=== PATIENT | female | born 1960 | race Caucasian/White ===

== ENCOUNTER 2023-03-06 08:21 | Inpatient (IN) | payer OTHER ==
[~2023-03-06] VITALS: Ht 144.8 cm; Wt 77.3 kg
[2023-03-06 09:20] LABS: BASOPHILS PERCENT AUTO 1 % (0-2); EOSINOPHILS ABSOLUTE AUTO 0.11 K/mm3 (0.00-0.68); EOSINOPHILS PERCENT AUTO 1 % (0-6); Hematocrit 41.4 % (33.0-51.0); Hemoglobin 13.5 g/dL (11.5-16.0); IMMATURE GRAN ABSOLUTE AUTO 0.04 K/mm3 (0.00-0.10); IMMATURE GRAN PERCENT AUTO 0 % (0-1); LYMPHOCYTES ABSOLUTE AUTO 1.66 K/mm3 (0.84-5.20); LYMPHOCYTES PERCENT AUTO 12 % (21-46); MONOCYTES ABSOLUTE AUTO 1.71 K/mm3 (0.16-1.47); MONOCYTES PERCENT AUTO 12 % (4-13); Mean Corpuscular HGB Conc 32.6 g/dL (31.5-36.5); Mean Corpuscular Volume 89 fL (80-100); Mean Platelet Volume 8.6 fL (9.1-12.4); NEUTROPHILS ABSOLUTE AUTO 10.86 K/mm3 (1.96-9.15); NEUTROPHILS PERCENT AUTO 75 % (41-73); Platelet Count 319 K/mm3 (150-400); RDW Coefficient Variation 15.3 % (11.7-14.2); RDW Standard Deviation 49.6 fL (35.1-46.3); Red Blood Cell Count 4.65 M/mm3 (3.80-5.20); White Blood Cell Count 14.48 K/mm3 (4.00-11.30)
[2023-03-06 09:43] LABS: Albumin, Blood 2.9 g/dL (3.4-5.0); Albumin/Globulin Ratio 0.7 (0.8-1.8); Bilirubin, Total 1.5 mg/dL (0.1-1.0); Bun/Creatinine Ratio 35.8 (12.0-20.0); Calcium, Blood 8.7 mg/dL (8.5-10.1); Creatinine, Blood 1.09 mg/dL (0.40-1.00); Globulin, Blood 3.9 g/dL (2.2-4.0); Potassium, Blood 3.9 mmol/L (3.5-5.5); Total Protein, Blood 6.8 g/dL (6.4-8.2)
[2023-03-06] MEDS ORDERED: ALBU90OI INH (09:58)
[2023-03-06] MEDS ORDERED: ALBU2.5V5 INH (09:58)
[2023-03-06] MEDS ORDERED: PREG300 PO (09:59)
[2023-03-06] MEDS ORDERED: ATOR20 PO (09:59)
[2023-03-06] MEDS ORDERED: LISI20 PO (09:59)
[2023-03-06] MEDS ORDERED: Robaxin750 MG PO (10:01)
[2023-03-06] MEDS ORDERED: PREG150 PO (10:01)
[2023-03-06] MEDS ORDERED: VERA180ERB PO (10:01)
[2023-03-06] MEDS ORDERED: WIXELA 500-501 EAC1 IH (10:01)
[2023-03-06] MEDS ORDERED: BUPR100 PO (10:02)
[2023-03-06] MEDS ORDERED: FURO20 PO (10:02)
[2023-03-06 11:19] LABS: Base Excess Venous -5.8 mmol/L; Bicarbonate Venous 20.1 mmol/L (24.0-30.0); PCO2 Venous 38.7 mmHg (38-42); pH Blood Venous 7.33 (7.34-7.37)
[2023-03-06 11:35] LABS: Adenovirus F 40/41 Not Detected (NOT DETECT); Astrovirus Not Detected (NOT DETECT); Campylobacter Sp Not Detected (NOT DETECT); Cryptosporidium Not Detected (NOT DETECT); Cyclospora Cayetanensis Not Detected (NOT DETECT); E. Coli O157 Not Detected (NOT DETECT); Entamoeba Histolytica Not Detected (NOT DETECT); Enteroaggregative E. coli-EAEC Not Detected (NOT DETECT); Enteropathogenic E. coli-EPEC Not Detected (NOT DETECT); Enterotoxigenic E. coli-ETEC Not Detected (NOT DETECT); Giardia Lamblia Not Detected (NOT DETECT); Norovirus GI/GII Not Detected (NOT DETECT); Plesiomonas Shigelloides Not Detected (NOT DETECT); Rotavirus A Not Detected (NOT DETECT); Salmonella Sp Not Detected (NOT DETECT); Sapovirus Not Detected (NOT DETECT); Shiga Toxin-prod E. coli-STEC Not Detected (NOT DETECT); Shigella/Enteroin E. coli-EIEC Not Detected (NOT DETECT); Vibrio Cholerae Not Detected (NOT DETECT); Vibrio Sp Not Detected (NOT DETECT); Yersinia Enterocolitica Not Detected (NOT DETECT)
[2023-03-06 14:18] VITALS: BP 95/57
[2023-03-06 15:59] VITALS: BP 101/56
--- NOTE | 2023-03-06 17:46 | NUR ---
SHIFT SUMMARY; ASSUMED CARE FROM ED FOR ADMIT. A/A/OX4, STANDS FROM ER [facility] AND GETS INTO BED INDEPENDANTLY. LR PER EMAR AT 150ML/HR, AMBULATES TO BATHROOM WITH SBA, SCD'S BILATERALLY, REPOSITIONS SELF IN BED NEEDED. NPO AT THIS TIME PER ORDERS, WILL CONTINUE TO MONITOR AND TREAT UNTIL CHANGE OF SHIFT.
[2023-03-06 19:59] VITALS: BP 106/57
[2023-03-07] VITALS: BP 89/62
[2023-03-07 04:58] LABS: BASOPHILS ABSOLUTE AUTO 0.11 K/mm3 (0.00-0.23); BASOPHILS PERCENT AUTO 1 % (0-2); EOSINOPHILS ABSOLUTE AUTO 0.27 K/mm3 (0.00-0.68); EOSINOPHILS PERCENT AUTO 2 % (0-6); Hematocrit 37.1 % (33.0-51.0); Hemoglobin 11.9 g/dL (11.5-16.0); IMMATURE GRAN ABSOLUTE AUTO 0.03 K/mm3 (0.00-0.10); IMMATURE GRAN PERCENT AUTO 0 % (0-1); LYMPHOCYTES ABSOLUTE AUTO 1.94 K/mm3 (0.84-5.20); LYMPHOCYTES PERCENT AUTO 17 % (21-46); MONOCYTES ABSOLUTE AUTO 1.19 K/mm3 (0.16-1.47); MONOCYTES PERCENT AUTO 11 % (4-13); Mean Corpuscular HGB 29.2 pg (26.0-34.0); Mean Corpuscular HGB Conc 32.1 g/dL (31.5-36.5); Mean Corpuscular Volume 91 fL (80-100); Mean Platelet Volume 9.3 fL (9.1-12.4); NEUTROPHILS ABSOLUTE AUTO 7.82 K/mm3 (1.96-9.15); NEUTROPHILS PERCENT AUTO 69 % (41-73); Platelet Count 312 K/mm3 (150-400); RDW Coefficient Variation 15.4 % (11.7-14.2); Red Blood Cell Count 4.08 M/mm3 (3.80-5.20); White Blood Cell Count 11.36 K/mm3 (4.00-11.30)
[2023-03-07 05:20] VITALS: BP 116/53
--- NOTE | 2023-03-07 06:03 | NUR ---
SHIFT SUMMARY PATIENT ALERT AND ORIENTED x4. ABLE TO MAKE NEEDS KNOWN TO STAFF. VITALS STABLE, PATIENT PLACED ON 2L NC D/T DESATING WHILE SLEEPING, SPO2 >90%. AMBULATORY TO THE BATHROOM WITH MINIMAL ASSISTANCE, ADEQUATE OUTPUT. TOLERATING SIPS/CHIPS PER ORDER. MEDICATED PER EMAR FOR PAIN. NO OTHER SIGNIFICANT CHANGES, WILL REPORT TO DAY SHIFT RN. PATIENT EDUCATED ON IGNITION RISK. NO RISK NOTED. PATIENT VERBALIZED UNDERSTANDING. WILL CONTINUE TO MONITOR FOR INCREASED RISK.
[2023-03-07 06:54] LABS: Albumin, Blood 2.6 g/dL (3.4-5.0); Albumin/Globulin Ratio 0.8 (0.8-1.8); Bun/Creatinine Ratio 27.6 (12.0-20.0); Calcium, Blood 8.7 mg/dL (8.5-10.1); Creatinine, Blood 0.62 mg/dL (0.40-1.00); Globulin, Blood 3.4 g/dL (2.2-4.0); Potassium, Blood 3.8 mmol/L (3.5-5.5)
[2023-03-07 07:58] VITALS: BP 109/58
[2023-03-07 15:19] VITALS: BP 120/54
--- NOTE | 2023-03-07 17:37 | NUR ---
SHIFT SUMMARY ASSUMED CARE AT 0700, A/A/OX4. REPOSITIONS SELF IN BED, AMBULATES TO BATHROOM WITH SBA. REPORTS FEELING BETTER TODAY COMPARED TO YESTERDAY, DIET ADVANCED TO CLEAR LIQUIDS, TOLERATING SMALL AMOUNTS WELL. CONTINUED LOOSE STOOL TODAY. STATUS CHANGED TO MEDICAL, VSS, WILL CONTINUE TO MONITOR AND TREAT UNTIL CHANGE OF SHIFT.
[2023-03-07 20:10] VITALS: BP 128/54
[2023-03-07 20:59] VITALS: BP 147/63
[2023-03-08 04:57] LABS: BASOPHILS ABSOLUTE AUTO 0.11 K/mm3 (0.00-0.23); BASOPHILS PERCENT AUTO 1 % (0-2); EOSINOPHILS ABSOLUTE AUTO 0.37 K/mm3 (0.00-0.68); EOSINOPHILS PERCENT AUTO 4 % (0-6); Hematocrit 36.4 % (33.0-51.0); IMMATURE GRAN ABSOLUTE AUTO 0.05 K/mm3 (0.00-0.10); IMMATURE GRAN PERCENT AUTO 1 % (0-1); LYMPHOCYTES ABSOLUTE AUTO 2.37 K/mm3 (0.84-5.20); LYMPHOCYTES PERCENT AUTO 25 % (21-46); MONOCYTES ABSOLUTE AUTO 0.97 K/mm3 (0.16-1.47); MONOCYTES PERCENT AUTO 10 % (4-13); Mean Corpuscular HGB 29.1 pg (26.0-34.0); Mean Corpuscular Volume 88 fL (80-100); NEUTROPHILS ABSOLUTE AUTO 5.48 K/mm3 (1.96-9.15); NEUTROPHILS PERCENT AUTO 59 % (41-73); Platelet Count 299 K/mm3 (150-400); RDW Coefficient Variation 14.7 % (11.7-14.2); RDW Standard Deviation 47.7 fL (35.1-46.3); Red Blood Cell Count 4.12 M/mm3 (3.80-5.20); White Blood Cell Count 9.35 K/mm3 (4.00-11.30)
--- NOTE | 2023-03-08 05:13 | NUR ---
SUMMARY- PT TO MEDICAL FLOOR IN STABLE CONDITION AFTER RECEIVING REPORT FROM PCU NURSE. NO ACUTE EVENTS THIS SHIFT. PT CALM AND COOPERATIVE. X1 ASSIST IN THE ROOM. AAOX4. NO COMPLAINTS. X1 EPISODE OF LOOSE STOOL. PT TOLERATING CLEARS WELL. 2 RN SKIN CHECK PERFORMED AT TRANSFER BY THIS RN AND LIVAN ANGEL. PT HAS NO SKIN ISSUES/WOUNDS. RN ENSURED FIRE SAFETY EVERY HOUR DURING ROUNDS.
[2023-03-08 05:49] LABS: Bun/Creatinine Ratio 13.9 (12.0-20.0); Calcium, Blood 8.9 mg/dL (8.5-10.1); Creatinine, Blood 0.51 mg/dL (0.40-1.00); Potassium, Blood 3.7 mmol/L (3.5-5.5)
[2023-03-08 06:12] VITALS: BP 143/56
[2023-03-08 07:22] VITALS: BP 132/64
[2023-03-08 15:35] LABS: Hemoglobin 11.9 g/dL (11.5-16.0)
[2023-03-08 16:16] VITALS: BP 144/70
--- NOTE | 2023-03-08 16:30 | NUR ---
DAYSHIFT SUMMARY Patient is alert & oriented x4, independent in the room. Several episodes of diarrhea, GI panel negative. New order for bannana flakes started today. Plan is to continue IV & PO antibiotics, and advance diet as tolerated. Currently on clears, pt reports nausea with meals. Patient is alert & oriented x4, Provided education on ignition sources and the risks of injury while using an ignition source around oxygen. Patient verbalizes understanding and denies having any ignition source on her or in her items. Vitals stable, Will continue plan of care.
[2023-03-08 19:22] VITALS: BP 148/80
--- NOTE | 2023-03-09 00:13 | NUR ---
RN NOTE MS TALAVERA C/O SHARP ABDOMINAL PAIN AT THE START OF THE SHIFT HELPED WITH DILAUDID IV. SHE HAS BEEN UP INDEPENDENTLY TO THE BATHROOM. SHE DECLINED BANANA FLAKES THIS EVENING SHE SAID IT CAUSED HER TO FEEL NAUSEAUS EARLIER. SHE SAID SHE WILL TRY IT AGAIN WHEN NEXT DUE. PT EDUCATED RE IGNITION SOURCES AND RISK OF INJURY WHEN OXYGEN IS IN USE. PT DENIES SMOKING AND VERBALISED UNDERSTANDING. ASSESSMENT ON Q1-2HRLY ROUNDS.
[2023-03-09 04:24] VITALS: BP 129/76
--- NOTE | 2023-03-09 04:50 | NUR ---
SHIFT SUMMARY MS TALAVERA HAS NOT HAD ANY DIARRHEA OVERNIGHT. SHE SAID HER NAUSEA AND ABDOMINAL PAIN HAVE IMPROVED, FEELING COMFORTABLE THIS MORNING. BED LOW, CALL LIGHT IN REACH.
[2023-03-09 05:27] LABS: BASOPHILS ABSOLUTE AUTO 0.07 K/mm3 (0.00-0.23); BASOPHILS PERCENT AUTO 1 % (0-2); EOSINOPHILS ABSOLUTE AUTO 0.23 K/mm3 (0.00-0.68); EOSINOPHILS PERCENT AUTO 3 % (0-6); Hematocrit 35.5 % (33.0-51.0); Hemoglobin 11.6 g/dL (11.5-16.0); IMMATURE GRAN ABSOLUTE AUTO 0.04 K/mm3 (0.00-0.10); IMMATURE GRAN PERCENT AUTO 1 % (0-1); LYMPHOCYTES ABSOLUTE AUTO 2.32 K/mm3 (0.84-5.20); LYMPHOCYTES PERCENT AUTO 29 % (21-46); MONOCYTES ABSOLUTE AUTO 0.96 K/mm3 (0.16-1.47); MONOCYTES PERCENT AUTO 12 % (4-13); Mean Corpuscular HGB 28.8 pg (26.0-34.0); Mean Corpuscular HGB Conc 32.7 g/dL (31.5-36.5); Mean Corpuscular Volume 88 fL (80-100); Mean Platelet Volume 9.7 fL (9.1-12.4); NEUTROPHILS ABSOLUTE AUTO 4.53 K/mm3 (1.96-9.15); NEUTROPHILS PERCENT AUTO 56 % (41-73); Platelet Count 305 K/mm3 (150-400); RDW Coefficient Variation 14.6 % (11.7-14.2); RDW Standard Deviation 47.1 fL (35.1-46.3); Red Blood Cell Count 4.03 M/mm3 (3.80-5.20); White Blood Cell Count 8.15 K/mm3 (4.00-11.30)
[2023-03-09 06:12] LABS: Bun/Creatinine Ratio 10.4 (12.0-20.0); Calcium, Blood 8.9 mg/dL (8.5-10.1); Creatinine, Blood 0.39 mg/dL (0.40-1.00); Potassium, Blood 3.3 mmol/L (3.5-5.5)
--- NOTE | 2023-03-09 06:45 | NUR ---
RN NOTE SINCE SHIFT SUMMARY MS TALAVERA HAS HAD 3 EPISODES OF DIARRHEA.
[2023-03-09 09:17] VITALS: BP 133/81
[2023-03-09 16:39] VITALS: BP 123/85
--- NOTE | 2023-03-09 17:19 | NUR ---
SHIFT SUMMARY PT AxOx4. PLEASANT AND COOPERATIVE WITH CARE. PT IS INDEPENDENT IN THE ROOM AND REPORTED MULTIPLE LOOSE/LIQUID BM'S THIS SHIFT. PT STATES "THEY ARE MORE FORMED THAN YESTERDAY'S." PT REPORTED PAIN T/O THIS DAY SHIFT, BUT WAS ONLY MEDICATED WITH IV PAIN MEDS x1 PER PT'S PREFERENCE. PT REPORTED PAIN IN ABDOMEN ALL DAY, BUT WORSENS AFTER EATING MEAL. PT ADVANCED FROM A CLEAR TO FULL LIQUID DIET TODAY. PT HAD SHOWER THIS SHIFT. PT CURRENTLY RESTING IN CHAIR, TALKING ON PHONE. CALL LIGHT IN REACH. PT DENIES ANY NEEDS AT THIS TIME. PT WAS EDUCATED ON FIRE SAFETY AND RISK THIS SHIFT WITH VERBALIZED UNDERSTANDING.
[2023-03-09 19:57] VITALS: BP 137/99
--- NOTE | 2023-03-09 23:03 | NUR ---
RN NOTE MS TALAVERA WAS EDUCATED RE IGNITION SOURCES AND RISK FOR INJURY WHEN OXYGEN IS IN USE. PT DENIES SMOKING AND VERBALISED UNDERSTANDING. RISK REASSESSMENT ON Q1-2 HRLY ROUNDING. SHE HAD 3 BOUTS OF LOOSE STOOL THIS EVENING AND INCREASING ABDOMINAL PAIN REQUIRING DILAUDID IV WHICH HELPED TO EASE THE PAIN. ZOFRAN HELPS THE NAUSEA AND SHE IS TRYING TO INCREASE HER PO INTAKE AND TAKE ENSURE AND BANANA FLAKES BUT STILL CONTINUES TO HAVE DIFFICULTY KEEPING IT ALL DOWN WITHOUT NAUSEA OR ABDOMINAL PAIN. AFTER DILAUDID AND ZOFRAN SHE DOES LOOK LIKE SHE IS ABLE TO REST. BED LOW, CALL LIGHT IN REACH.
[2023-03-10 04:34] VITALS: BP 90/66
--- NOTE | 2023-03-10 04:45 | NUR ---
SHIFT SUMMARY MS TALAVERA HAD 3-4 EPISODES OF LOOSE STOOL AND SHARP ABDOMINAL PAIN AT THE START OF THE SHIFT. THROUGH THE NIGHT SHE GOT UP TO VOID BUT HAD NO LOOSE STOOL AND SAID THAT HER ABDOMINAL PAIN FEELS "MUCH BETTER" THIS MORNING. BED LOW, CALL LIGHT IN REACH.
[2023-03-10 05:13] LABS: BASOPHILS PERCENT AUTO 1 % (0-2); EOSINOPHILS ABSOLUTE AUTO 0.14 K/mm3 (0.00-0.68); EOSINOPHILS PERCENT AUTO 2 % (0-6); Hematocrit 35.6 % (33.0-51.0); Hemoglobin 11.4 g/dL (11.5-16.0); Mean Corpuscular HGB 28.1 pg (26.0-34.0); Mean Corpuscular Volume 88 fL (80-100); Mean Platelet Volume 9.5 fL (9.1-12.4); Platelet Count 321 K/mm3 (150-400); RDW Coefficient Variation 14.9 % (11.7-14.2); RDW Standard Deviation 48.1 fL (35.1-46.3); Red Blood Cell Count 4.05 M/mm3 (3.80-5.20)
[2023-03-10 05:16] LABS: IMMATURE GRAN ABSOLUTE AUTO 0.08 K/mm3 (0.00-0.10); IMMATURE GRAN PERCENT AUTO 1 % (0-1); LYMPHOCYTES ABSOLUTE AUTO 2.35 K/mm3 (0.84-5.20); LYMPHOCYTES PERCENT AUTO 28 % (21-46); MONOCYTES ABSOLUTE AUTO 1.14 K/mm3 (0.16-1.47); MONOCYTES PERCENT AUTO 14 % (4-13); NEUTROPHILS ABSOLUTE AUTO 4.59 K/mm3 (1.96-9.15); NEUTROPHILS PERCENT AUTO 55 % (41-73)
[2023-03-10 06:00] LABS: Bun/Creatinine Ratio 16.2 (12.0-20.0); Calcium, Blood 8.9 mg/dL (8.5-10.1); Creatinine, Blood 0.43 mg/dL (0.40-1.00)
[2023-03-10 06:10] VITALS: BP 112/75
[2023-03-10 07:35] VITALS: BP 110/75
[2023-03-10 15:34] VITALS: BP 135/94
--- NOTE | 2023-03-10 17:24 | NUR ---
DAYSHIFT SUMMARY Patient alert & oriented x4. Continues to have ABD pain, and several soft BMs. MD ordered repeat ABD CT. New orders for bowel rest, NPO. Oxygen 2lpm to maintain sats. Dilaudid given once for pain this shift. Patient reported severe pain, but thought she wasn't suppose to have pain meds d/t risk of constipation. MD provided education to patient and encouraged patient to request pain meds PRN. IV & PO ABX administred this shift. Provided education on ignition sources and the risks of injury while using an ignition source around oxygen. Patient verbalizes understanding and denies having any ignition source on him or in his items. Plan to continue NPO overnight, monitor # of stools, and manage pain.
[2023-03-10 20:16] VITALS: BP 114/79
--- NOTE | 2023-03-11 05:03 | NUR ---
SHIFT SUMMARY UNEVENTFUL SHIFT. VSS. MEDICATED ONCE FOR C/O ABD PAIN WITH GOOD RELIEF STATED BY PT. IS PLEASANT & COOPERATIVE WITH ALL CARE. HAS RESTED COMFORTABLY WITH EYES CLOSED, RESP EVEN & UNLABORED. DENIES N/V. DENIES HAVING IGNITION SOURCES IN HER POSSESSION. EDUCATED RE: RISK OF INJURY WHEN O2 IN USE. BED IN LOW POSITION, CALL LIGHT, WITHIN REACH.
--- NOTE | 2023-03-11 05:20 | NUR ---
SHIFT SUMMARY UNEVENTFUL SHIFT. VSS. WITH ENCOURAGEMENT IS PLEASANT & COOPERATIVE WITH ALL CARE. HAS ADHERED TO FLUID RESTRICTION. DENIES HAVING IGNITION SOURCES IN HER POSSESSION. EDUCATED RE: RISK OF INJURY WHEN O2 IS IN USE. BED IN LOW POSITION, CALL LIGHT WITHIN REACH.
[2023-03-11 06:08] VITALS: BP 122/85
[2023-03-11 07:33] VITALS: BP 120/86
[2023-03-11 08:09] LABS: BASOPHILS ABSOLUTE AUTO 0.12 K/mm3 (0.00-0.23); BASOPHILS PERCENT AUTO 1 % (0-2); EOSINOPHILS ABSOLUTE AUTO 0.21 K/mm3 (0.00-0.68); EOSINOPHILS PERCENT AUTO 2 % (0-6); Hematocrit 36.3 % (33.0-51.0); Hemoglobin 11.7 g/dL (11.5-16.0); IMMATURE GRAN PERCENT AUTO 1 % (0-1); LYMPHOCYTES ABSOLUTE AUTO 2.23 K/mm3 (0.84-5.20); LYMPHOCYTES PERCENT AUTO 25 % (21-46); MONOCYTES ABSOLUTE AUTO 1.28 K/mm3 (0.16-1.47); MONOCYTES PERCENT AUTO 14 % (4-13); Mean Corpuscular HGB 29.1 pg (26.0-34.0); Mean Corpuscular HGB Conc 32.2 g/dL (31.5-36.5); Mean Corpuscular Volume 90 fL (80-100); Mean Platelet Volume 9.1 fL (9.1-12.4); NEUTROPHILS PERCENT AUTO 56 % (41-73); NRBC ABSOLUTE 0.04 K/mm3 (0.00-0.02); NRBC Auto 0.4 /100 WBC (0.0-0.2); Platelet Count 340 K/mm3 (150-400); RDW Coefficient Variation 15.2 % (11.7-14.2); RDW Standard Deviation 50.1 fL (35.1-46.3); Red Blood Cell Count 4.02 M/mm3 (3.80-5.20); White Blood Cell Count 8.94 K/mm3 (4.00-11.30)
[2023-03-11 08:26] LABS: Bun/Creatinine Ratio 16.1 (12.0-20.0); Calcium, Blood 8.9 mg/dL (8.5-10.1); Creatinine, Blood 0.5 mg/dL (0.40-1.00); Potassium, Blood 3.7 mmol/L (3.5-5.5)
[2023-03-11 15:36] VITALS: BP 133/78
--- NOTE | 2023-03-11 17:34 | NUR ---
DAYSHIFT SUMMARY Patient alert & oriented x 4. Patient has several loose stools this shift. NPO, except small sips and ice chips. Continues to have moderate ABD pain, PRN Dilaudid effective for pain control. Stool Calprotectin results pending. GI consulted, plan to do colonscopy on monday. IV & PO ABX administred. Provided education on ignition sources and the risks of injury while using an ignition source around oxygen. Patient verbalizes understanding and denies having any ignition source on him or in his items. Vitals stable, will continue plan of care.
[2023-03-11 19:47] VITALS: BP 144/85
[2023-03-12 04:14] VITALS: BP 142/81
--- NOTE | 2023-03-12 04:48 | NUR ---
SHIFT SUMMARY UNEVENTFUL SHIFT, NO CLINICAL CHANGES, VSS. MEDICATED ONCE FOR C/O PAIN WITH GOOD RELIEF STATED BY PT. PT C/O ITCHING, PLACED CALL TO MD, ORDERS RECEIVED FOR 1 TIME DOSE OF 25MG BENADRYL WITH GOOD RELIEF STATED BY PT. HAS RESTED WITH EYES CLOSED, RESP EVEN & UNLABORED. DENIED NAUSEA THIS SHIFT. IS NPO EXCEPT SIPS OF H2O & ICE CHIPS. INDEPENDENT IN THE ROOM FOR RESTROOM USE. IS ANTICIPATING COLONOSCOPY SCHEDULED FOR [facility] W/DR. BOWMAN. PT DENIES HAVING IGNITION SOURCES IN HER POSSESSION, REVIEWED RISK OF INJURY WHEN O2 IS IN USE. VERBALIZED GOOD UNDERSTANDING. BED IN LOW POSITION, CALL LIGHT WITHIN REACH.
[2023-03-12 05:01] LABS: BASOPHILS PERCENT AUTO 2 % (0-2); EOSINOPHILS ABSOLUTE AUTO 0.16 K/mm3 (0.00-0.68); EOSINOPHILS PERCENT AUTO 2 % (0-6); Hematocrit 35.1 % (33.0-51.0); Hemoglobin 11.1 g/dL (11.5-16.0); IMMATURE GRAN ABSOLUTE AUTO 0.06 K/mm3 (0.00-0.10); IMMATURE GRAN PERCENT AUTO 1 % (0-1); LYMPHOCYTES PERCENT AUTO 30 % (21-46); MONOCYTES ABSOLUTE AUTO 1.06 K/mm3 (0.16-1.47); MONOCYTES PERCENT AUTO 16 % (4-13); Mean Corpuscular HGB 28.5 pg (26.0-34.0); Mean Corpuscular HGB Conc 31.6 g/dL (31.5-36.5); Mean Corpuscular Volume 90 fL (80-100); Mean Platelet Volume 9.6 fL (9.1-12.4); NEUTROPHILS ABSOLUTE AUTO 3.19 K/mm3 (1.96-9.15); NEUTROPHILS PERCENT AUTO 49 % (41-73); NRBC ABSOLUTE 0.03 K/mm3 (0.00-0.02); NRBC Auto 0.5 /100 WBC (0.0-0.2); Platelet Count 386 K/mm3 (150-400); RDW Coefficient Variation 15.2 % (11.7-14.2); RDW Standard Deviation 50.5 fL (35.1-46.3); Red Blood Cell Count 3.89 M/mm3 (3.80-5.20); White Blood Cell Count 6.57 K/mm3 (4.00-11.30)
[2023-03-12 05:30] LABS: Bun/Creatinine Ratio 16.7 (12.0-20.0); Calcium, Blood 8.7 mg/dL (8.5-10.1); Creatinine, Blood 0.48 mg/dL (0.40-1.00); Potassium, Blood 3.8 mmol/L (3.5-5.5)
[2023-03-12 07:48] VITALS: BP 135/91
[2023-03-12 15:22] VITALS: BP 140/90
--- NOTE | 2023-03-12 16:34 | NUR ---
SHIFT SUMMARY PT AOX4, INDEPENDENT IN THE ROOM. HAS BEEN AT THE BS MOST OF THE SHIFT. PT MEDICATED FOR PAIN PER THE EMAR. MULTIPLE LOOSE BM'S THIS SHIFT. IV IN R FA INFILTRATED, NEW IV PLACED. COLONOSCOPY SCHEDULED FOR MONDAY. PT IS NPO, ONLY MEDS, SIPS OF WATER AND ICE CHIPS. PT MAKES HER NEEDS KNOWN. FIRE SAFETY MEASURES AND PROTOCOLS DISCUSSED WITH PT AND SHE VERBALLY AGREED. CALL LIGHT WITHIN REACH, BED IN THE LOWEST POSITION. WILL REPORT TO ONCOMING NURSE.
[2023-03-12 20:34] VITALS: BP 137/81
[2023-03-13 02:38] VITALS: BP 112/70
[2023-03-13 05:10] LABS: Bun/Creatinine Ratio 14.7 (12.0-20.0); Calcium, Blood 8.5 mg/dL (8.5-10.1); Creatinine, Blood 0.48 mg/dL (0.40-1.00); Potassium, Blood 3.8 mmol/L (3.5-5.5)
--- NOTE | 2023-03-13 05:18 | NUR ---
NO CHANGES OVERNIGHT FOR MS TALAVERA. SHE TWICE HAD 8/10 LOWER ABD PAIN ACCOMPANIED WITH NAUSEA WHICH WAS EASILY RESOLVED WITH ZOFRAN ODT AND 1MG IV DILAUDED, TOLERATING SIPS AND CHIPS AND STATES SHE "DOES NOT REALLY FEEL UP FOR FOOD ANYWAY." CONCERN FOR IGNITABLES AND SAFETY DISCUSSED. NO SOURCES OF COMBUSTION NOTED
[2023-03-13 07:13] VITALS: BP 136/88
--- NOTE | 2023-03-13 15:33 | NUR ---
SHIFT SUMMARY PT AOX4, SBA TO THE BR. SHE C/O PAIN EARLY IN THE SHIFT, ALONG WITH NAUSEA, SHE WAS MEDICATED PER THE EMAR. SHE RECEIVED A SHOWER TODAY. SHE IS TO START BOWEL PREP FOR A COLONOSCOPY TOMORROW LATE AFTERNOON. PT IS PLEASANT AND COOPERATIVE, MAKING HER NEEDS KNOWN. CALL LIGHT WITHIN REACH, BED IN THE LOWEST POSITION. FIRE SAFETY PROTOCOLS AND PROCEDURES MAINTAINED. PT VERBALIZED UNDERSTANDING AND NO IGNITION SOURCES NOTED.
[2023-03-13 15:47] VITALS: BP 134/89
--- NOTE | 2023-03-13 17:22 | NUR ---
ONE TIME ZOFRAN GIVEN AT CORRECT TIME. UNABLE TO DOCUMENT DUE TO DOCUMENTATION ALREADY PENDING BY PRIOR NURSE. WILL ALERT NIGHT RN.
[2023-03-14] VITALS (12 sets, daily range): BP systolic 123–148; BP diastolic 73–108
--- NOTE | 2023-03-14 04:24 | NUR ---
SHIFT SUMMARY. SHIFT HAS BEEN MOSTLY UNREMARKABLE. PAIN WELL MANAGED ON CURRENT MEDICATION REGIMEN. PT WAS HAVING SOME RUNNY STOOLS EARLY IN SHIFT BUT IT HAS SINCE SUBSIDED. IV IN RHA IS LEAKING SLIGHTLY BUT FLUSHES WELL. SOME COMPLAINTS OF PAIN THAT SUBSIDED WITH DRESSING CHANGE. NO MANIFESTATIONS OF INFECTION OR SITE DISTRESS. HAD NOTHING BUT ICE CHIPS OVER COURSE OF SHIFT. HAS SLEPT THROUGH MUCH OF SHIFT. AOX4, PLEASANT, COOPERATIVE WITH CARE. BED LOCKED IN LOWEST POSITION. CALL LIGHT LEFT WITHIN REACH.
--- NOTE | 2023-03-14 14:32 | NUR ---
PT BROUGHT FROM FLOOR TO DAY SURGERY FOR PROCEDURE.
--- NOTE | 2023-03-14 14:59 | NUR ---
03/14/[address] FORD; SEE ANESTHESIA RECORDS.
--- NOTE | 2023-03-14 18:58 | NUR ---
SHIFT SUMMARY: PT A&O X4. PT PLEASANT AND COOPERATIVE WITH CARE. BOWEL PREP FINISHED AROUND 0900 WITH END RESULT PRIOR TO COLONOSCOPY SHOWING LIGHT GREEN BM. PT SATS DROPPED TO MID TO HIGH 80'S ON 2L DOWN TO SURGERY. 02 CURRENTLY ON 3L W/ 02 IN LOW 90'S. HOME [address] FOR TOMORROW PT HAS TO TRAVEL 8 HOURS BACK TO [place]. PHOTOS OF COLONOSCOPY IN HARD CHART. AROUND 183, PT STATED SHE HAD BRIGHT RED BLOOD AND CLOTS IN BM. REPORTED TO ONCOMING RN TO MONITOR AND TO CALL DOCTOR IF WORSENS. PT STATES BM IS PAINLESS. IGNITION SOURCES DICUSSED WITH PT AND BY THIS RN AND BODY WORKER. PT VERBALIZES UNDERSTANDING. CALL LIGHT IN REACH. BED IN LOWEST POSITION. REPORT GIVEN TO ONCOMING RN.
[2023-03-15 01:36] VITALS: BP 132/87
--- NOTE | 2023-03-15 03:51 | NUR ---
SHIFT SUMMARY. SHIFT HAS BEEN MOSTLY UNREMARKABLE. PRN DILAUDID GIVEN TWICE THIS SHIFT THUS FAR, PAIN WELL MANAGED ON CURRENT MEDICATION REGIMEN. LIMITED PO INTAKE THIS SHIFT BUT HAS TOLERATED ENSURE THAT SHE HAD EARLY YESTERDAY EVENING. SOME COMPLAINTS OF BLOOD IN STOOL NOTED ON SHIFT REPORT THAT WERE NOT VIZUALISED BY THIS NURSE. INFORMED TO NOTIFY ME IF THIS CONTINUES BUT IT HAS NOT THUS FAR. WILL CONTINUE TO MONITOR. ON VITALS LAST NIGHT, O2 SATS WERE IN THE MID 80s ON 3 L O2 VIA NC. BUMPED UP O2 TO 5 L BEFORE SATURATIONS REMAINED ABOVE 92%. NO ISSUES SINCE. PT BELIEVES THIS IS DUE TO INABILITY TO BREATHE DEEPLY DUE TO ABD PAIN. HAS IMPROVED OVER NIGHT. CALLS APPROPRIATELY. AOX4, PLEASANT, COOPERATIVE WITH CARE. BED LOCKED IN LOWEST POSITION. CALL LIGHT LEFT WITHIN REACH.
[2023-03-15 04:14] VITALS: BP 119/79
[2023-03-15 07:29] VITALS: BP 124/80
--- NOTE | 2023-03-15 14:18 | NUR ---
PT DISCHARGED FROM THE UNIT. IV REMOVED. O2 SENT WITH PT. NO NEW MEDICATIONS.
== END 2023-03-15 13:09 | disposition home or self-care (01) | DRG 394 ==
LOC: ER 08:21 → PCU 12:44 → MEDS 12:44 → PCU 14:09 → MEDS 03-07 20:40 → ENPENDDIS 03-15 11:15 → MEDS 03-15 13:09
PROVIDERS: Emergency Medicine; Internal Medicine Gastroenterology; ADMIT Internal Medicine
PROC: 0DBL8ZX Excision of Transverse Colon, Via Natural or Artificial Opening Endoscopic, Diagnostic (ICD-10-PCS; 2023-03-14)
PROC: 0DBN8ZX Excision of Sigmoid Colon, Via Natural or Artificial Opening Endoscopic, Diagnostic (ICD-10-PCS; 2023-03-14)
PROC: 0DBP8ZX Excision of Rectum, Via Natural or Artificial Opening Endoscopic, Diagnostic (ICD-10-PCS; 2023-03-14)
PROC: 0DBM8ZX Excision of Descending Colon, Via Natural or Artificial Opening Endoscopic, Diagnostic (ICD-10-PCS; 2023-03-14)
PROC: 0DBH8ZX Excision of Cecum, Via Natural or Artificial Opening Endoscopic, Diagnostic (ICD-10-PCS; 2023-03-14)
PROC: 0DBK8ZX Excision of Ascending Colon, Via Natural or Artificial Opening Endoscopic, Diagnostic (ICD-10-PCS; principal; 2023-03-14 15:00)
DX: K55.039 Acute (reversible) ischemia of large intestine, extent unspecified (principal); E87.1 Hypo-osmolality and hyponatremia; E87.20 Acidosis, unspecified; R65.10 Systemic inflammatory response syndrome (SIRS) of non-infectious origin without acute organ dysfunction; I95.9 Hypotension, unspecified; I10 Essential (primary) hypertension; E78.5 Hyperlipidemia, unspecified; M54.2 Cervicalgia; J44.9 Chronic obstructive pulmonary disease, unspecified; M54.9 Dorsalgia, unspecified; E66.3 Overweight; G89.29 Other chronic pain; M19.90 Unspecified osteoarthritis, unspecified site; K57.30 Diverticulosis of large intestine without perforation or abscess without bleeding; K64.8 Other hemorrhoids; R56.9 Unspecified convulsions; G47.00 Insomnia, unspecified; F32.A Depression, unspecified; Z86.010 Personal history of colon polyps; Z98.1 Arthrodesis status; Z79.899 Other long term (current) drug therapy; Z79.811 Long term (current) use of aromatase inhibitors; Z79.51 Long term (current) use of inhaled steroids; Z99.81 Dependence on supplemental oxygen
CPT/HCPCS: 36415; 71045; 74177; 80048; 80053; 82803; 82947; 83605; 83690; 83993; 84443; 84484; 85014; 85018; 85025; 85651; 86140; 87507; 93005; 93010; 94640; 94664; 94760; 94761; 96361; 96365-59; 96375; 99285-25; A9270; C9113; J0696; J1170; J1200; J1650; J2405; J2543; J2704; J7030; J7050; J7120; Q9967